=== PATIENT | female | born 1965 ===

== ENCOUNTER 2024-09-15 12:15 | Inpatient (IN) | payer OTHER ==
[~2024-09-15] VITALS: Ht 165.1 cm; Wt 68.0 kg
[2024-09-15] MEDS ORDERED: TRAMADOL HCL E100 M1 (13:51)
[2024-09-15] MEDS ORDERED: XANAX XR1 MG PO (13:51)
[2024-09-15] MEDS ORDERED: NAPR500T14 PO (13:51)
[2024-09-15] MEDS ORDERED: ESTAZOLAM2 MG PO (13:52)
[2024-09-15] MEDS ORDERED: SYNTHROID112 MCG PO (13:52)
[2024-09-15] MEDS ORDERED: FLEXERIL (13:53)
[2024-09-15] MEDS ORDERED: TROPOL (13:53)
[2024-09-15] MEDS ORDERED: PHENERGAN25 MG PO (13:54)
[2024-09-15] MEDS ORDERED: FLONASE NIGHTT2.5 MG (13:54)
[2024-09-15] MEDS ORDERED: PROTONIX40 MG PO (13:55)
[2024-09-15] MEDS ORDERED: RISPERDAL0.5 MG PO (13:55)
[2024-09-15] MEDS ORDERED: VISTARIL50 MG/ML IM (13:56)
[2024-09-15] MEDS ORDERED: ALLEGRA-D 24 H1 EACH PO (13:56)
[2024-09-15] MEDS ORDERED: CRESTOR40 MG (13:56)
[2024-09-15] MEDS ORDERED: NEURONTIN300 MG (13:57)
[2024-09-15 14:04] VITALS: BP 121/80
[2024-09-21] MEDS ORDERED: CEFTRIAXONE SODIUM 2,000 MG VIAL ONE (12:55)
[2024-09-21] MEDS ORDERED: METRONIDAZOLE/SODIUM CHLORIDE 500 MG/100 ML PIGGYBACK IV ONE (12:56)
[2024-09-21] MEDS ORDERED: POVIDONE-IODINE 118 ML BOTT TOP ONE (14:06)
[2024-09-21] MEDS ORDERED: DIBUCAINE 30 GM TUBE ONE (14:06)
[2024-09-21] MEDS ORDERED: BUPIVACAINE HCL/MPF 0.5% 30ML VIAL ONE (14:06)
[2024-09-21] MEDS ORDERED: LIDOCAINE HCL 1%/EPINEPHRINE 20ML VIAL IJ ONE (14:06)
[2024-09-21] MEDS ORDERED: HEMOSTATIC MATRIX 1 KIT KIT TOP ONE (14:45)
[2024-09-21] MEDS ORDERED: MORPHINE SULFATE 4 MG/ML CARTRIDGE IV PRN (16:15)
[2024-09-21] MEDS ORDERED: DEXTROSE 50 % IN WATER 0.5 G/ML VIAL IV PRN (16:15)
[2024-09-21] MEDS ORDERED: ONDANSETRON HCL 2 MG/ML VIAL IV PRN (16:15)
[2024-09-21] MEDS ORDERED: 0.9 % SODIUM CHLORIDE 1,000 ML IV SCH (16:15)
[2024-09-21] MEDS ORDERED: OxyCODONE HCL 5 MG TABLET (ROXICODONE) PO PRN (16:15)
[2024-09-21] MEDS ORDERED: METOCLOPRAMIDE HCL 5 MG/ML VIAL IV SCH (17:00)
[2024-09-21] MEDS ORDERED: HYOSCYAMINE SULFATE 0.125 MG TAB.SUBL SL SCH (17:00)
[2024-09-21] MEDS ORDERED: GABAPENTIN 300 MG CAPSULE PO SCH (17:00)
[2024-09-21] MEDS ORDERED: POLYETHYLENE GLYCOL 3350 17 GM BLIST.PACK PO SCH (17:00)
[2024-09-21] MEDS ORDERED: METOCLOPRAMIDE HCL 5 MG/ML VIAL ONE (17:01)
[2024-09-21] MEDS ORDERED: ENALAPRILAT DIHYDRATE 1.25 MG/ML VIAL IV PRN (17:15)
[2024-09-21] MEDS ORDERED: ACETAMINOPHEN 500 MG GEL..CAP PO ONE (19:19)
[2024-09-21] MEDS ORDERED: ACETAMINOPHEN 500 MG GEL..CAP PO SCH (20:00)
[2024-09-21 20:35] VITALS: BP 118/74; O2SAT 99
[2024-09-21] MEDS ORDERED: FAMOTIDINE/PF 20 MG/2 ML VIAL IV PUSH SCH (21:00)
[2024-09-21] MEDS ORDERED: CELECOXIB 200 MG CAPSULE PO SCH (21:00)
[2024-09-22 00:45] VITALS: BP 107/70; O2SAT 95
[2024-09-22] MEDS ORDERED: LEVOTHYROXINE SODIUM 112 MCG TABLET PO SCH (06:00)
[2024-09-22 08:00] VITALS: BP 134/79; O2SAT 100
[2024-09-22] MEDS ORDERED: CELECOXIB200 MG PO (08:03)
[2024-09-22] MEDS ORDERED: PERCOCET 5-3251 EACH PO (08:04)
[2024-09-22] MEDS ORDERED: NEURONTIN300 MG PO (08:04)
[2024-09-22] MEDS ORDERED: INTESTINEX680 M1 PO (08:04)
[2024-09-22] MEDS ORDERED: METOPROLOL SUCCINATE 25 MG TAB.SR.24H PO SCH (09:00)
[2024-09-22] MEDS ORDERED: LACTOBACILLUS ACIDOPHILUS 1 CAP CAP PO SCH (09:00)
== END 2024-09-22 10:53 | disposition home or self-care (01) | DRG 748 ==
LOC: O/R 09-21 09:00 → SURH 09-21 09:30 → SURG 09-21 17:50
PROVIDERS: ADMIT Surgery; ATTEND Surgery
PROC: 3E0T3BZ Introduction of Anesthetic Agent into Peripheral Nerves and Plexi, Percutaneous Approach (ICD-10-PCS; 2024-09-21)
PROC: 0JQC0ZZ Repair Pelvic Region Subcutaneous Tissue and Fascia, Open Approach (ICD-10-PCS; principal; 2024-09-21 09:30)
DX: N81.6 Rectocele (principal); K57.30 Diverticulosis of large intestine without perforation or abscess without bleeding; R15.9 Full incontinence of feces